=== PATIENT | male | born 1960 | race Hispanic/Latino ===

== ENCOUNTER 2019-04-08 11:19 | Outpatient (CLI) | payer MEDICARE ==
--- NOTE | 2019-04-08 12:50 | Cat Scan Report ---
PROCEDURE: CT LUMBAR SPINE WO CON TECHNIQUE: Computerized axial tomography of the lumbar spine was performed from T12 to the sacrum wi thout contrast material. Coronal and sagittal reconstructed imaging provided. This study is performed without intravenous contrast and the sensitivity for pathology, including neoplasms, adenopathy, abs cess, inflammation and infection is reduced. CT DOSE LENGTH PRODUCT: 1069.5 mGy-cm. HISTORY: LOW BACK PAIN AND LEFT HIP PAIN COMPARISONS: CT lumbar spine May 15, 2016. FINDINGS: T12, L1, and L4 mild to moderate compression fracture deformities appear chronic. Chronic endplate degenerative changes and intravertebral disc herniations. There is no subluxation. T11-T12: No significant canal or foraminal narrowing. T12-L1: Symmetrical disc osteophyte complex. Bilateral facet arthropathy. Mild spinal canal narrowing . Mild bilateral foraminal narrowing. L1-L2: Symmetrical disc osteophyte complex. Bilateral facet arthropathy. Mild spinal canal narrowing. Mild bilateral foraminal narrowing. L2-L3: Symmetrical disc osteophyte complex. Mild spinal canal narrowing. Bilateral foramina are intac t. L3-L4: Minimal symmetrical disc osteophyte complex. Bilateral facet arthropathy. No significant canal narrowing. Mild bilateral foraminal narrowing. L4-L5: Posterior pedicle screws. Hypertrophic osseous changes and facet arthropathy around the hardwa re. Symmetrical bulge. Mild spinal canal narrowing. Moderate bilateral foraminal narrowing. L5-S1: Posterior pedicle screws. Bilateral facet arthropathy. No significant canal narrowing. Moderat e bilateral foraminal narrowing. Bilateral sacroiliitis with ankylosis. Prevertebral soft tissues are unremarkable. No aortic aneurysm. Mild aortic atherosclerotic disease. IMPRESSION: * Comparison with prior will be made as an addendum once requested prior images and report are provi ded. * Posterior fusion hardware at L4 and L5. * Chronic appearing mild to moderate compression fracture deformities at T12, L1, and L4. * Degenerative discs and arthropathy with the most notable levels at L4-S1. This document is electronically signed by Naveen Donovan MD., April 08 2019 12:48:32 PM ET
--- NOTE | 2019-04-08 13:03 | Cat Scan Report ---
PROCEDURE: CT LOWER EXTREMITY LT WO CON TECHNIQUE: Multiple contiguous axial images were obtained through the left hip without administratio n of IV contrast. Reformatted sagittal and coronal images were available for review. HISTORY: LOW BACK PAIN AND LEFT HIP PAIN COMPARISONS: None. FINDINGS: There is no acute fracture or dislocation. There is severe left hip joint space narrowing with hypert rophic changes, subchondral sclerosis, and subchondral cystic formation there is a trace joint effusi on. The visualized musculature is normal in appearance. IMPRESSION: Severe degenerative changes of the left hip without acute fracture or dislocation. This document is electronically signed by Meenu Vilalseñor MD., April 08 2019 01:01:09 PM ET
== END 2019-04-08 11:20 | disposition home or self-care (01) ==
LOC: CT 11:19
PROVIDERS: ATTEND Internal Medicine
DX: M54.5 Low back pain (principal); M16.12 Unilateral primary osteoarthritis, left hip; M43.8X4 Other specified deforming dorsopathies, thoracic region; M43.8X6 Other specified deforming dorsopathies, lumbar region; M46.87 Other specified inflammatory spondylopathies, lumbosacral region; M46.1 Sacroiliitis, not elsewhere classified; M43.27 Fusion of spine, lumbosacral region; M48.061 Spinal stenosis, lumbar region without neurogenic claudication; I70.0 Atherosclerosis of aorta
CPT/HCPCS: 72131